=== PATIENT | male | born 1980 | race Hispanic/Latino ===

== ENCOUNTER → 2025-01-06 | Outpatient (CLI) | payer BC ==
[2025-01-06 15:24] LABS: CREATININE 1.0 mg/dL (0.5-1.3); GLOMERULAR FILTR. RATE CALC 94.0 mL/min (>90); UREA NITROGEN, BLOOD 18.0 mg/dL (7-18)
== END | disposition home or self-care (01) ==
LOC: LAB 14:55
PROVIDERS: ATTEND Internal Medicine Gastroenterology
DX: R93.422 Abnormal radiologic findings on diagnostic imaging of left kidney (principal)
CPT/HCPCS: 36415; 82565; 84520

== ENCOUNTER → 2025-01-18 | Outpatient (CLI) | payer BC ==
[~2025-01-18] MED LIST: IOHEXOL-350 75 ML VIAL IV ONE
--- NOTE | 2025-01-19 08:30 | HMCIMG ---
EXAM: CT Abdomen and Pelvis with and without IV contrast CLINICAL HISTORY: Abnormal radiologic findings on diagnostic imaging of left kidney TECHNIQUE: Axial computed tomography images of the abdomen and pelvis with and without intravenous contrast. CONTRAST: with and without intravenous contrast. COMPARISON: None provided. FINDINGS: LUNG BASES: Fibrotic bands in the left lower lobe. No pleural effusions are seen. LIVER: Unremarkable. GALLBLADDER AND BILE DUCTS: The gallbladder appears within normal limits. No radioopaque gallstones are seen. No biliary ductal dilatation is evident. PANCREAS: Unremarkable. SPLEEN: Unremarkable. ADRENAL GLANDS: Unremarkable. KIDNEYS, URETERS, AND BLADDER: The kidneys appear within normal limits. There is no hydronephrosis or hydroureter. No urinary calculi are seen. Thickening of the urinary bladder wall which may be due to underdistention or cystitis. STOMACH AND BOWEL: Colonic diverticulosis without diverticulitis. Unremarkable appearance of the stomach and small bowel. No evidence of bowel obstruction. No evidence suggesting enteritis or colitis. APPENDIX: No evidence of acute appendicitis on CT examination. PERITONEUM: No free fluid. No free air. LYMPH NODES: No lymphadenopathy is evident. REPRODUCTIVE: Unremarkable as visualized. VASCULATURE: Mild atherosclerotic changes in the form of eccentric vessel wall calcification in the abdominal aorta and its major branches. No evidence of abdominal aortic aneurysm. BONES: No aggressive appearing osseous lesion. No acute osseous pathology evident. IMPRESSION: 1. Thickening of the urinary bladder wall which may be due to underdistention or cystitis. 2. Normal kidneys. No urinary calculi. No hydronephrosis. 3. No bowel obstruction or inflammation. Colonic diverticulosis without diverticulitis. Normal appendix. /[place]
== END | disposition home or self-care (01) ==
LOC: RAH 09:36
PROVIDERS: ATTEND Internal Medicine Gastroenterology
DX: K57.30 Diverticulosis of large intestine without perforation or abscess without bleeding (principal); I70.0 Atherosclerosis of aorta; N32.89 Other specified disorders of bladder; R93.422 Abnormal radiologic findings on diagnostic imaging of left kidney
CPT/HCPCS: 74178; Q9967